=== PATIENT | female | born 1990 | race Caucasian/White ===

== ENCOUNTER 2016-06-24 01:09 | Emergency (ER) | payer OTHER ==
[2016-06-24 01:35] VITALS: TEMP 98.9; BMI 29.4
[2016-06-24] MEDS ORDERED: MAG HYDROX/AL HYDROX/SIMETH 30 ML UNIT-DOSE CUP PO ONE (02:02)
[2016-06-24] MEDS ORDERED: IBUPROFEN 600 MG TABLET (FP) PO ONE ×2 (02:03→02:09)
[2016-06-24] MEDS ORDERED: MAG HYDROX/AL HYDROX/SIMETH 30 ML UNIT-DOSE CUP ONE (02:09)
--- NOTE | 2016-06-24 02:41 | PDOC ---
History of Present Illness <Winston Jordan - Last Filed: 06/24/16 05:10> - General History Source: Patient Exam Limitations: No Limitations - History of Present Illness Initial Comments: 06/24/16 02:36 Patient is a 26 year-old female with past medical history gastritis c/o acutely of sore throat and epigastric pain that radiates midline to the throat. Patient states these symptoms started today. Pain is 8/10 and worse when she swallow. Took tylenol has some relief but the pain comes back. Last dose of tylenol was 4 pm. She has some nausea and vomiting liquid phlegm. Denies fever , chills, nasal congestion, runny nose, no body aches. Also c/o lower back pain x 2 months. Pain is in the middle of the back 8/10, intermittent, sharp, stabbing, assoc with pelvic pain b/l. No bowel or bladder incontinence. Denies any injury Saw her pmd last weak, testing done , Pelvic US and blood work no results as yet. LMP 91 days ago. PMD: Dr. Mariee PMHX: as above PSOCHX: neg cig, drug, etoh, FamHX; non contributory ALL: NKDA GENERAL/CONSTITUTIONAL: [No fever or chills. No weakness. No weight change.] HEAD, EYES, EARS, NOSE AND THROAT: [No change in vision. No ear pain or discharge. No sore throat.] CARDIOVASCULAR: [No chest pain or shortness of breath.] RESPIRATORY: [No cough, wheezing, or hemoptysis.] GASTROINTESTINAL: [No nausea, vomiting, diarrhea or constipation. No rectal bleeding.] GENITOURINARY: [No dysuria, frequency, or change in urination.] MUSCULOSKELETAL: [No joint or muscle swelling or pain. No neck (+) back pain.] SKIN AND BREASTS: [No rash or easy bruising.] NEUROLOGIC: [No headache, vertigo, loss of consciousness, or loss of sensation.] PSYCHIATRIC: [No depression or anxiety.] ENDOCRINE: [No increased thirst. No abnormal weight change.] HEMATOLOGIC/LYMPHATIC: [No anemia, easy bleeding, or history of blood clots.] ALLERGIC/IMMUNOLOGIC: [No hives or skin allergy. No latex allergy.] GENERAL: [The patient is awake, alert, and fully oriented, in no acute distress. ] HEAD: [Normal with no signs of trauma.] EYES: [Pupils equal, round and reactive to light, extraocular movements intact, sclera anicteric, conjunctiva clear.] ENT: [Ears normal, nares patent, oropharynx clear without exudates. Moist mucous membranes.] NECK: [Normal range of motion, supple without lymphadenopathy, JVD, or masses.] LUNGS: [Breath sounds equal, clear to auscultation bilaterally. No wheezes, and no crackles.] HEART: [Regular rate and rhythm, normal S1 and S2 without murmur, rub.] ABDOMEN: [Soft, nontender, normoactive bowel sounds. No guarding, no rebound. No masses.] EXTREMITIES: [Normal range of motion, no edema. No clubbing or cyanosis. No cords, erythema, or tenderness.] BACK: nontender over the lumbar spinious process NEUROLOGICAL: [Cranial nerves II through XII grossly intact. Normal speech, normal gait, 5/5 strength] PSYCH: [Normal mood, normal affect.] SKIN: [Warm, Dry, normal turgor, no rashes or lesions noted.] <Dante Pizano - Last Filed: 06/24/16 08:01> - General Chief Complaint: Cold Symptoms Stated Complaint: SORE THROAT, FEVER Time Seen by Provider: 06/24/16 01:36 Past History <Winston Jordan - Last Filed: 06/24/16 05:10> - Psycho/Social/Smoking Cessation Hx Suicidal Ideation: No Smoking History: Never smoked <Dante Pizano - Last Filed: 06/24/16 08:01> - Past Medical History Allergies/Adverse Reactions: Allergies Allergy/AdvReac Type Severity Reaction Status Date / Time No Known Allergies Allergy Verified 06/24/16 01:33 Home Medications: Ambulatory Orders Acetaminophen [Tylenol] 325 mg PO QID PRN 06/24/16 *Physical Exam - Vital Signs Last Vital Signs Temp Pulse Resp BP Pulse Ox 98.9 F 114 H 22 112/73 100 06/24/16 01:33 06/24/16 01:33 06/24/16 01:33 06/24/16 01:33 06/24/16 01:33 <Winston Jordan - Last Filed: 06/24/16 05:10> - Vital Signs Last Vital Signs Temp Pulse Resp BP Pulse Ox 98.9 F 114 H 22 112/73 100 06/24/16 01:33 06/24/16 01:33 06/24/16 01:33 06/24/16 01:33 06/24/16 01:33 <Dante Pizano - Last Filed: 06/24/16 08:01> ED Treatment Course - LABORATORY CBC & Chemistry Diagram: 06/24/16 03:38 06/24/16 03:38 - ADDITIONAL ORDERS Additional order review: Laboratory Results 06/24/16 06/24/16 03:38 02:02 Sodium 141 Potassium 4.2 Chloride 106 Carbon Dioxide 26 Anion Gap 9 BUN 7 Creatinine 0.6 Random Glucose 94 Calcium 9.0 Urine Color Yellow Urine Appearance Slcloudy Urine pH 6.0 Ur Specific [place] 1.016 Urine Protein Negative Urine Glucose (UA) Negative Urine Ketones Negative Urine Blood 2+ H Urine Nitrite Negative Urine Bilirubin Negative Urine Urobilinogen Negative Ur Leukocyte Esterase 1+ H Urine RBC 19 Urine WBC 7 Ur Epithelial Cells Few Urine Bacteria Rare Urine Mucus Rare Urine HCG, Qual Negative 06/24/16 02:56 Group A Strep Rapid Antigen - Final Throat 06/24/16 03:38 RBC 4.51 MCV 80.2 MCHC 32.8 RDW 14.1 MPV 8.6 Neutrophils % 75.6 Lymphocytes % 14.0 Monocytes % 9.7 Eosinophils % 0.4 Basophils % 0.3 - RADIOLOGY Radiograph Interpretation: 06/24/16 05:10 Patient Name: Kenzie Liriano THIS IS A PRELIMINARYREPORT FROM [facility]AM : CT abdomen and pelvis without contrast IMAGES: 425 INDICATION: Back pain and hematuria DATE OF SERVICE: 2016-06-24 03:47:06.0 COMPARISON: none FINDINGS: Lung bases are clear. The visualized cardiac chambers are normal size and configuration. Normal unenhanced liver, gallbladder, pancreas, spleen, adrenal glands and kidneys. The stomach and abdominal small and large bowel are normal. There is no aortic aneurysm. There is no significant retroperitoneal lymphadenopathy. The pelvic small and large bowel are normal. The appendix is normal. The uterus and adnexal structures are normal. Urinary bladder is unremarkable. There is minimal pelvic free fluid, possibly physiologic. No discrete pelvic lymphadenopathy is identified. IMPRESSION: No evidence of acute pathology. THIS DOCUMENT HAS BEEN ELECTRONICALLY SIGNED Eliot Nalaboff, MD - Medications Given in the ED: ED Medications Discontinued Medications Generic Name Dose Route Start Last Admin Trade Name Freq PRN Reason Stop Dose Admin Al Hydroxide/Mg Hydroxide 30 ml 06/24/16 02:02 06/24/16 02:11 Mylanta Oral Suspension - PO 06/24/16 02:03 30 ml ONCE ONE Administration Ibuprofen 600 mg 06/24/16 02:03 06/24/16 02:11 Motrin - PO 06/24/16 02:04 600 mg ONCE ONE Administration <Winston Jordan - Last Filed: 06/24/16 05:10> - LABORATORY CBC & Chemistry Diagram: 06/24/16 03:38 06/24/16 03:38 - Medications Given in the ED: ED Medications Discontinued Medications Generic Name Dose Route Start Last Admin Trade Name Freq PRN Reason Stop Dose Admin Al Hydroxide/Mg Hydroxide 30 ml 06/24/16 02:02 06/24/16 02:11 Mylanta Oral Suspension - PO 06/24/16 02:03 30 ml ONCE ONE Administration Ibuprofen 600 mg 06/24/16 02:03 06/24/16 02:11 Motrin - PO 06/24/16 02:04 600 mg ONCE ONE Administration <Dante Pizano - Last Filed: 06/24/16 08:01> Medical Decision Making - Medical Decision Making 06/24/16 02:41 Patient is a 26 year-old female with past medical history gastritis c/o acutely of sore throat and epigastric pain that radiates midline to the throat. Patient states these symptoms started today. Also c/o lower back pain x 1 month started work up with pmd. will get UA, rapid strep rapid strep neg UA shows blood, no wbc will get labs and CT abd pelvis labs are normal except for wbc 12 on cbc, CT neg for any abdominal pathology. Selected Entries 06/24/16 05:52 Pulse Rate [ 80 Right Radial] Respiratory 18 Rate Blood Pressure 107/68 [Right Arm] Blood Pressure 81 Mean [Right Arm ] O2 Sat by Pulse 98 Oximetry (%) I discussed the physical exam findings, ancillary test results and final diagnoses with the patient. I answered all of the patient's questions. The patient was satisfied with the care received and felt comfortable with the discharge plan and treatment plan. The Patient agrees to follow up with the primary care physician within 24-72 hours. <Dante Pizano - Last Filed: 06/24/16 08:01> *DC/Admit/Observation/Transfer <Winston Jordan - Last Filed: 06/24/16 05:10> <Dante Pizano - Last Filed: 06/24/16 08:01> Diagnosis at time of Disposition: Viral pharyngitis, Epigastric abdominal pain, Hematuria Back pain Qualifiers: Qualified Code(s): M54.9 - Dorsalgia, unspecified - Discharge Dispostion Disposition: HOME Condition at time of disposition: Stable - Referrals Referrals: Ned Tobias MD [Staff Physician] - - Patient Instructions Printed Discharge Instructions: DI for Viral Pharyngitis, DI for Epigastric Pain, DI for Low Back Pain Additional Instructions: Your Discharge Instructions: You must call primary care physician within 24 hours to arrange follow-up. Return to the Emergency Department with any new, persistent or worsening symptoms, for fever, chills, SOB, dizziness or any other concerning changes that may occur. Your must follow up with your pmd for further work up
[2016-06-24 02:43] LABS: URINE APPEARANCE SLCLOUDY; URINE BILIRUBIN NEGATIVE (NEGATIVE); URINE COLOR YELLOW; URINE GLUCOSE (UA) NEGATIVE (NEGATIVE); URINE KETONE NEGATIVE (NEGATIVE); URINE NITRITE NEGATIVE (NEGATIVE); URINE PROTEIN NEGATIVE (NEGATIVE); URINE UROBILINOGEN NEGATIVE E.U./dl (0.2-1.0)
[2016-06-24 02:48] LABS: URINE BLOOD 2+ (NEGATIVE); URINE LEUK ESTERASE 1+ (NEGATIVE)
[2016-06-24 02:50] LABS: URINE BACTERIA RARE /hpf (NONE SEEN); URINE MUCUS RARE; URINE RBC 19 /hpf (0-3); URINE WBC 7 /hpf (3-5)
[2016-06-24 03:54] LABS: BASOPHIL 0.3 % (0-2.0); EOSINOPHIL 0.4 % (0-4.5); MCH 26.3 pg (25.7-33.7); MCHC 32.8 g/dl (32.0-36.0); MEAN CELL VOLUME 80.2 fl (80-96); MEAN PLT VOLUME 8.6 fl (7.5-11.1); NEUTROPHILS 75.6 % (42.8-82.8); PLATELET COUNT 208 K/MM3 (134-434); RDW 14.1 % (11.6-15.6); WHITE BLOOD COUNT 12.4 K/mm3 (4.0-10.0)
[2016-06-24 04:20] LABS: CREATININE 0.6 mg/dL (0.55-1.02)
[2016-06-24 05:53] VITALS: BP 107/68; PULSE 80
== END 2016-06-24 06:11 | disposition home or self-care (01) ==
LOC: JER 01:09
DX: J02.9 Acute pharyngitis, unspecified (principal); B97.89 Other viral agents as the cause of diseases classified elsewhere; M54.5 Low back pain; R31.9 Hematuria, unspecified
CPT/HCPCS: 36415; 74176-TC; 80048; 81003; 81015; 84703; 85025; 87070; 87430; 99281-25